=== PATIENT | female | born 1995 | race Caucasian/White ===

== ENCOUNTER 2022-03-24 05:34 | Inpatient (IN) ==
[2022-03-24] MEDS ORDERED: FAMOTIDINE 20 MG/2 ML VIAL IV ONE (05:44)
[2022-03-24] MEDS ORDERED: TRANEXAMIC ACID 1,000 MG in SODIUM CHLORIDE 0.9% 100 ML IV PRN (05:44)
[2022-03-24] MEDS ORDERED: OXYTOCIN/LR 20 UNIT/1,000 ML BAG IV ONE ×2 (05:44→11:47)
[2022-03-24] MEDS ORDERED: miSOPROStoL 200 MCG TABLET RECTAL PRN (05:44)
[2022-03-24] MEDS ORDERED: METHYLERGONOVINE 0.2 MG/1 ML AMP IM PRN (05:44)
[2022-03-24] MEDS ORDERED: CITRIC ACID/SODIUM CITRATE 30 ML UDCUP PO ONE (05:44)
[2022-03-24] MEDS ORDERED: CARBOPROST TROMETHAMINE 250 MCG/ML AMP IM PRN (05:44)
[2022-03-24 06:30] LABS: Basophils % 0.1 % (0.0-0.8); Eosinophils # 0.1 10*3/uL (0.0-0.87); Eosinophils % 0.8 % (0.00-10.9); Immature Granulocytes % 0.8 %; Immature Granulocytes Absolute 0.08 #; Lymphocytes # 2.3 10*3/uL (1.4-4.0); Lymphocytes % 24.4 % (21.3-54.2); Mean Corpuscular HGB Conc 36.4 GM/DL (32-36); Mean Corpuscular Volume 90.2 FL (87-102); Mean Platelet Volume 10.9 FL (9.6-12.0); Monocytes # 0.7 10*3/uL (0.11-0.8); Monocytes % 7.6 % (1.7-12.7); Neutrophils % 66.3 % (38.7-73.9); Platelet Count 209 T/CUMM (130-400); Red Blood Count 3.66 MC/CUMM (3.8-5.5); Red Cell Distribution Width 13.2 % (9.3-17.3); White Blood Count 9.6 T/CUMM (4-12)
[2022-03-24] MEDS ORDERED: ceFAZolin 3,000 MG in SYRINGE 15 EACH IV ONE (06:30)
[2022-03-24] MEDS: LACTATED RINGERS 1,000 ML IV SCH ×3 (06:40→21:25)
[2022-03-24] MEDS ORDERED: TRANEXAMIC ACID 1,000 MG/10 ML VIAL ONE (09:10)
[2022-03-24] MEDS ORDERED: miSOPROStoL 200 MCG TABLET ONE (09:10)
[2022-03-24] MEDS ORDERED: SODIUM CHLORIDE 0.9% 0 ML IV ONE (09:10)
[2022-03-24] MEDS ORDERED: METHYLERGONOVINE 0.2 MG/1 ML AMP ONE (09:10)
[2022-03-24] MEDS ORDERED: CARBOPROST TROMETHAMINE 250 MCG/ML AMP IM ONE (09:10)
[2022-03-24] MEDS ORDERED: BUPIVACAINE SPINAL 0.75% 2 ML AMP SPINAL ONE (09:33)
[2022-03-24] MEDS ORDERED: buprenorphine HCL 0.3 MG/ML VIAL ONE (09:33)
[2022-03-24] MEDS ORDERED: ONDANSETRON 4 MG/2 ML VIAL ONE (09:33)
[2022-03-24] MEDS ORDERED: PHENYLEPHRINE 1 MG/10 ML SYRINGE IV ONE ×2 (09:44→10:18)
[2022-03-24] MEDS ORDERED: ACETAMINOPHEN INJ 1,000 MG/100 ML VIAL IV ONE (09:49)
[2022-03-24] MEDS ORDERED: KETOROLAC 30 MG/1 ML VIAL ONE (09:49)
[2022-03-24 10:28] LABS: Cord Arterial Blood HCO3 23.7 MMOL/L
[2022-03-24 10:31] LABS: Cord Venous Blood HCO3 23.9 MMOL/L; Cord Venous Blood PCO2 48.5 MMHG; Cord Venous Blood PO2 31.9
[2022-03-24 10:40] LABS: Mucus,Urine Occasional /LPF (Occasional); RBC,Urine 1 /HPF (0-4)
[2022-03-24 10:41] LABS: Bilirubin,Urine Negative (Negative); Blood, Urine Negative (Negative); Glucose,Urine (UA) Negative (Negative); Ketones,Urine Trace mg/dL (Negative); Nitrite,Urine Negative (Negative); Protein,Urine Trace mg/dL (Negative); Urine Appearance Clear (Clear); Urine Color Yellow (Yellow); Urine Urobilinogen 0.2 eU/dL (<2.0)
[2022-03-24] MEDS ORDERED: diphenhydrAMINE 50 MG/1 ML VIAL ONE (10:43)
[2022-03-24] MEDS ORDERED: ONDANSETRON 4 MG/2 ML VIAL IV PRN (16:11)
[2022-03-24] MEDS: ACETAMINOPHEN 500 MG TABLET PO SCH ×2 (16:47→21:47)
[2022-03-24] MEDS: KETOROLAC 30 MG/1 ML VIAL IV SCH ×2 (16:50→21:46)
[2022-03-24] MEDS: ceFAZolin 2,000 MG/50 ML DUPLEX IV SCH (16:56)
[2022-03-24] MEDS: DOCUSATE SODIUM 100 MG CAPSULE PO SCH (21:17)
[2022-03-24] MEDS: diphenhydrAMINE 50 MG/1 ML VIAL IV PRN (21:23)
[2022-03-25] MEDS: ceFAZolin 2,000 MG/50 ML DUPLEX IV SCH (01:27)
[2022-03-25] MEDS: ACETAMINOPHEN 500 MG TABLET PO SCH (04:02)
[2022-03-25 04:28] LABS: Basophils % 0.3 % (0.0-0.8); Eosinophils # 0.1 10*3/uL (0.0-0.87); Hematocrit 28.3 VOL% (35.7-47.0); Immature Granulocytes % 0.5 %; Immature Granulocytes Absolute 0.04 #; Lymphocytes # 1.7 10*3/uL (1.4-4.0); Lymphocytes % 19.3 % (21.3-54.2); Mean Corpuscular HGB Conc 35.3 GM/DL (32-36); Mean Corpuscular Volume 91.9 FL (87-102); Mean Platelet Volume 11.1 FL (9.6-12.0); Monocytes # 0.7 10*3/uL (0.11-0.8); Monocytes % 8.2 % (1.7-12.7); Neutrophils % 70.7 % (38.7-73.9); Platelet Count 188 T/CUMM (130-400); Red Blood Count 3.08 MC/CUMM (3.8-5.5); Red Cell Distribution Width 13.4 % (9.3-17.3); White Blood Count 8.9 T/CUMM (4-12)
[2022-03-25] MEDS: KETOROLAC 30 MG/1 ML VIAL IV SCH (04:29)
[2022-03-25] MEDS: MULTIVITAMIN (PRENATAL) TABLET PO SCH (08:52)
[2022-03-25] MEDS: DOCUSATE SODIUM 100 MG CAPSULE PO SCH ×2 (08:53→22:02)
[2022-03-25] MEDS: diphenhydrAMINE 50 MG/1 ML VIAL IV PRN (09:24)
[2022-03-25] MEDS: IBUPROFEN 800 MG TABLET PO PRN ×2 (09:25→22:14)
[2022-03-25] MEDS: SIMETHICONE CHEW 80 MG TABLET PO PRN (17:57)
[2022-03-25] MEDS: MAGNESIUM HYDROXIDE SUSP 30 ML UDCUP PO PRN (17:57)
[2022-03-26] MEDS: MAGNESIUM HYDROXIDE SUSP 30 ML UDCUP PO PRN ×2 (08:16→17:59)
[2022-03-26] MEDS: MULTIVITAMIN (PRENATAL) TABLET PO SCH (08:16)
[2022-03-26] MEDS: DOCUSATE SODIUM 100 MG CAPSULE PO SCH ×2 (08:16→21:13)
[2022-03-26] MEDS ORDERED: BISACODYL 10 MG SUPP RECTAL PRN (08:19)
[2022-03-26] MEDS: IBUPROFEN 800 MG TABLET PO PRN ×2 (12:59→21:12)
[2022-03-26] MEDS: SIMETHICONE CHEW 80 MG TABLET PO PRN ×3 (13:00→22:29)
[2022-03-26] MEDS ORDERED: FLUCONAZOLE 150 MG TABLET PO ONE (14:32)
[2022-03-26] MEDS: MICONAZOLE 2% CREAM 57 GM TUBE TOP SCH ×2 (15:23→23:01)
[2022-03-26] MEDS: NEOMYCIN/POLYMYXIN/BACITRACIN OINT 0.9 GM PACK TOP SCH ×2 (15:26→23:01)
[2022-03-27] MEDS: DOCUSATE SODIUM 100 MG CAPSULE PO SCH (08:47)
[2022-03-27] MEDS: MULTIVITAMIN (PRENATAL) TABLET PO SCH (08:47)
[2022-03-27] MEDS: SIMETHICONE CHEW 80 MG TABLET PO PRN (08:47)
[2022-03-27] MEDS: NEOMYCIN/POLYMYXIN/BACITRACIN OINT 0.9 GM PACK TOP SCH (08:49)
[2022-03-27] MEDS: MICONAZOLE 2% CREAM 57 GM TUBE TOP SCH (08:50)
[2022-03-27] MEDS: IBUPROFEN 800 MG TABLET PO PRN (12:10)
[2022-03-27 14:33] VITALS: BP 116/64
== END 2022-03-27 14:35 | disposition home or self-care (01) | DRG 788 ==
LOC: N.LD 05:34 → N.OB 13:08
PROVIDERS: ADMIT Specialist; ATTEND Specialist
PROC: LDCSECT (ICD-10-PCS; 2022-03-24 09:00)